=== PATIENT | female | born 1960 | race Two or more races ===

== ENCOUNTER 2016-07-29 15:40 | Inpatient (IN) | payer MEDICAID ==
[~2016-07-29] VITALS: Ht 152.4 cm; Wt 90.4 kg
[2016-07-29 16:15] LABS: Basophils # (auto) 0 uL; Basophils % (auto) 0.3 % (0.0-2.0); Eosinophils # (auto) 0.1 uL; Eosinophils % (auto) 1.2 % (0.0-7.0); Hematocrit 41.8 % (36.0-46.0); Lymphocytes # (auto) 3.2 uL; Lymphocytes % (auto) 34.5 % (10.0-50.0); Mean Corpuscular Hgb Conc. 33.6 g/dL (32.0-36.0); Mean Corpuscular Volume 86.3 fL (80.0-100.0); Mean Platelet Volume 8.4 fL (7.4-10.4); Monocytes # (auto) 0.4 uL; Monocytes % (auto) 4.8 % (0.0-12.0); Neutrophils # (auto) 5.5 uL; Neutrophils % (auto) 59.2 % (37.0-80.0); Platelet Count (auto) 318 10^3/uL (140-450); Red Cell Distribution Width 14.1 % (11.6-16.0); White Blood Cell 9.2 10^3/uL (4.4-10.8)
[2016-07-29 16:23] LABS: INR 0.95 (0.9-1.15); Partial Thromboplastin Time 27.3 sec (22.64-33.71); Prothrombin Time 10.3 sec (9.37-12.3)
[2016-07-29 16:27] LABS: Albumin 3.9 g/dL (3.4-5.0); Anion Gap 9 (5-15); Aspartate Aminotransferase 22 U/L (15-37); BUN/Creatinine Ratio 16.7; Blood Urea Nitrogen 16 mg/dL (7-18); Calcium 8.8 mg/dL (8.5-10.1); Carbon Dioxide 27 mmol/L (21-32); Chloride 106 mmol/L (98-107); GFR African American 78 mL/min; GFR Non-African American 64 mL/min; Glucose 89 mg/dL (74-106); Potassium 3.5 mmol/L (3.5-5.1); Sodium 142 mmol/L (136-145)
[2016-07-29 16:32] LABS: Alkaline Phosphatase 106 U/L (45-117); Bilirubin, Total 0.4 mg/dL (0.2-1.0); Total Protein 8.3 g/dL (6.4-8.2)
[2016-07-29] MEDS ORDERED: SODIUM CHLORIDE 0.9% 1,000 ML IV ONE (17:30)
[2016-07-29] MEDS ORDERED: MORPHINE SULFATE 4 MG/ML SYRG IV ONE (17:30)
[2016-07-29] MEDS ORDERED: ASPirin 81 mg TAB PO ONE ×2 (17:30→18:00)
[2016-07-29] MEDS ORDERED: ONDANSETRON HCL 4 MG/2 ML VIAL IV ONE (17:30)
[2016-07-29] MEDS ORDERED: NITROGLYCERIN 0.4 MG SL TAB SL PRN (18:30)
[2016-07-29] MEDS ORDERED: LORazepam 0.5 MG TAB PO PRN (18:30)
[2016-07-29] MEDS ORDERED: TEMAZEPAM 15 MG CAP PO PRN (18:30)
[2016-07-29] MEDS ORDERED: MORPHINE SULF INJ 2 MG/ML SYRINGE 1ML IV PRN ×2 (18:30)
[2016-07-29] MEDS ORDERED: PROCHLORPERAZINE EDISYLATE 5 MG/ML 2ML VIAL IV PRN (18:30)
[2016-07-29] MEDS ORDERED: LACTULOSE 20Gm/30ML SOLN PO PRN (18:30)
[2016-07-29] MEDS ORDERED: ENALAPRIL MALEATE 10 MG TAB PO ONE (18:45)
[2016-07-29] MEDS ORDERED: NITROGLYCERIN 0.2MG/HR TOPICAL PATCH TD ONE (18:45)
[2016-07-29] MEDS ORDERED: ENOXAPARIN SOD 40 MG/0.4 ML SYRINGE SC ONE (18:45)
[2016-07-29] MEDS: SODIUM CHLORIDE 0.9% 1,000 ML IV SCH (19:40)
[2016-07-29] MEDS: ATORVASTATIN 20 MG TAB PO SCH (21:55)
[2016-07-29] MEDS: METOPROLOL TARTRATE 25 MG TAB PO SCH (21:56)
[2016-07-29] MEDS: HYDROcodone-ACET 5/325MG TAB PO PRN (21:57)
[2016-07-29 22:30] VITALS: BP 111/61
[2016-07-30] VITALS (7 sets, daily range): BP systolic 86–119; BP diastolic 53–74
[2016-07-30] MEDS: SODIUM CHLORIDE 0.9% 1,000 ML IV SCH ×2 (05:21→22:15)
[2016-07-30 06:15] LABS: Cholesterol 185 mg/dL (< 200); HDL Cholesterol 37 mg/dL (40-59); LDL Cholesterol 131 mg/dL (< 100); Triglycerides 202 mg/dL (< 150)
[2016-07-30] MEDS ORDERED: NITROGLYCERIN 0.2MG/HR TOPICAL PATCH TD SCH (10:00)
[2016-07-30] MEDS: NITROGLYCERIN 0.2MG/HR TOPICAL PATCH TD SCH (10:00)
[2016-07-30] MEDS: METOPROLOL TARTRATE 25 MG TAB PO SCH ×2 (10:04→22:00)
[2016-07-30] MEDS: ACETAMINOPHEN 500 MG TAB PO PRN (10:04)
[2016-07-30] MEDS: ENALAPRIL MALEATE 10 MG TAB PO SCH (10:05)
[2016-07-30] MEDS: ENOXAPARIN SOD 40 MG/0.4 ML SYRINGE SC SCH (10:05)
[2016-07-30] MEDS: ASPirin 81 mg TAB PO SCH (10:05)
[2016-07-30] MEDS: ATORVASTATIN 20 MG TAB PO SCH (22:15)
[2016-07-30] MEDS: HYDROcodone-ACET 5/325MG TAB PO PRN (22:33)
[2016-07-31 05:00] VITALS: BP 146/84
[2016-07-31 06:18] LABS: Basophils # (auto) 0 uL; Basophils % (auto) 0.3 % (0.0-2.0); Eosinophils # (auto) 0.2 uL; Eosinophils % (auto) 2.9 % (0.0-7.0); Hematocrit 36.9 % (36.0-46.0); Hemoglobin 12.5 g/dL (12.2-16.2); Lymphocytes # (auto) 3.4 uL; Lymphocytes % (auto) 47.8 % (10.0-50.0); Mean Corpuscular Hemoglobin 29.5 pg (28.0-32.0); Mean Corpuscular Hgb Conc. 33.9 g/dL (32.0-36.0); Mean Platelet Volume 8.8 fL (7.4-10.4); Monocytes # (auto) 0.4 uL; Neutrophils # (auto) 3.1 uL; Platelet Count (auto) 253 10^3/uL (140-450); Red Cell Distribution Width 14.1 % (11.6-16.0)
[2016-07-31 06:56] LABS: BUN/Creatinine Ratio 19.1; Calcium 8.2 mg/dL (8.5-10.1)
[2016-07-31 08:00] VITALS: BP 141/72
[2016-07-31 09:17] VITALS: BP 141/72
[2016-07-31] MEDS: ASPirin 81 mg TAB PO SCH (09:21)
[2016-07-31] MEDS: ENALAPRIL MALEATE 10 MG TAB PO SCH (09:22)
[2016-07-31] MEDS: ACETAMINOPHEN 500 MG TAB PO PRN (09:22)
[2016-07-31] MEDS: METOPROLOL TARTRATE 25 MG TAB PO SCH ×2 (09:22→22:00)
[2016-07-31] MEDS: NITROGLYCERIN 0.2MG/HR TOPICAL PATCH TD SCH (09:23)
[2016-07-31] MEDS: SODIUM CHLORIDE 0.9% 1,000 ML IV SCH ×2 (09:23→23:37)
[2016-07-31] MEDS: ENOXAPARIN SOD 40 MG/0.4 ML SYRINGE SC SCH (09:23)
[2016-07-31 12:51] VITALS: BP 156/80
[2016-07-31] MEDS: HYDROcodone-ACET 5/325MG TAB PO PRN (15:08)
[2016-07-31 17:00] VITALS: BP 120/68
[2016-07-31] MEDS: ATORVASTATIN 20 MG TAB PO SCH (22:01)
[2016-07-31 22:04] VITALS: BP 128/93
[2016-08-01 04:42] VITALS: BP 130/81
[2016-08-01 06:24] LABS: Basophils # (auto) 0 uL; Basophils % (auto) 0.4 % (0.0-2.0); Eosinophils # (auto) 0.2 uL; Eosinophils % (auto) 2.8 % (0.0-7.0); Hematocrit 39.4 % (36.0-46.0); Hemoglobin 13.2 g/dL (12.2-16.2); Lymphocytes # (auto) 2.9 uL; Mean Corpuscular Hemoglobin 29.1 pg (28.0-32.0); Mean Corpuscular Hgb Conc. 33.5 g/dL (32.0-36.0); Mean Corpuscular Volume 86.6 fL (80.0-100.0); Mean Platelet Volume 8.9 fL (7.4-10.4); Monocytes # (auto) 0.3 uL; Monocytes % (auto) 4.3 % (0.0-12.0); Neutrophils # (auto) 4.5 uL; Neutrophils % (auto) 56.5 % (37.0-80.0); Platelet Count (auto) 275 10^3/uL (140-450); Red Cell Distribution Width 13.5 % (11.6-16.0)
[2016-08-01 06:40] LABS: BUN/Creatinine Ratio 19.6; Calcium 8.7 mg/dL (8.5-10.1); Potassium 3.9 mmol/L (3.5-5.1)
[2016-08-01 08:00] VITALS: BP 131/79
[2016-08-01 09:00] VITALS: BP 131/79
[2016-08-01] MEDS: ENALAPRIL MALEATE 10 MG TAB PO SCH (09:40)
[2016-08-01] MEDS: METOPROLOL TARTRATE 25 MG TAB PO SCH ×2 (09:40→22:17)
[2016-08-01] MEDS: ASPirin 81 mg TAB PO SCH (09:41)
[2016-08-01] MEDS: NITROGLYCERIN 0.2MG/HR TOPICAL PATCH TD SCH (09:41)
[2016-08-01] MEDS: ENOXAPARIN SOD 40 MG/0.4 ML SYRINGE SC SCH (09:42)
[2016-08-01] MEDS: ACETAMINOPHEN 500 MG TAB PO PRN ×2 (11:44→18:01)
[2016-08-01 12:41] VITALS: BP 141/81
[2016-08-01] MEDS: SODIUM CHLORIDE 0.9% 1,000 ML IV SCH (14:05)
[2016-08-01 17:01] VITALS: BP 110/53
[2016-08-01 22:00] VITALS: BP 141/70
[2016-08-01] MEDS: ATORVASTATIN 20 MG TAB PO SCH (22:16)
[2016-08-02] MEDS: SODIUM CHLORIDE 0.9% 1,000 ML IV SCH ×2 (02:45→15:37)
[2016-08-02 05:00] VITALS: BP 126/57
[2016-08-02 08:00] VITALS: BP 156/73
[2016-08-02 09:00] VITALS: BP 156/73
[2016-08-02] MEDS ORDERED: NITROGLYCERIN 0.4 MG SL TAB SL ONE (10:04)
[2016-08-02] MEDS ORDERED: METOPROLOL TARTRATE 1MG/1ML-5ML VIAL IV ONE (10:05)
[2016-08-02] MEDS ORDERED: IOHEXOL 350 MG/ML 100ML IJ ONE (10:10)
[2016-08-02] MEDS: ASPirin 81 mg TAB PO SCH (10:50)
[2016-08-02] MEDS: ENOXAPARIN SOD 40 MG/0.4 ML SYRINGE SC SCH (10:50)
[2016-08-02] MEDS: NITROGLYCERIN 0.2MG/HR TOPICAL PATCH TD SCH (10:50)
[2016-08-02] MEDS: ENALAPRIL MALEATE 10 MG TAB PO SCH (10:51)
[2016-08-02] MEDS: METOPROLOL TARTRATE 25 MG TAB PO SCH (10:51)
[2016-08-02] MEDS: ACETAMINOPHEN 500 MG TAB PO PRN (11:01)
[2016-08-02 13:00] VITALS: BP 145/77
[2016-08-02 16:25] VITALS: BP 145/77
== END 2016-08-02 16:45 | disposition home or self-care (01) | DRG 203 ==
LOC: ER 15:42 → TELE 15:43 → TELE-WESTW 22:20
PROVIDERS: ADMIT Internal Medicine; ATTEND Nurse Practitioner Acute Care
DX: R07.89 Other chest pain (principal); E66.01 Morbid (severe) obesity due to excess calories; I15.9 Secondary hypertension, unspecified; I16.0 Hypertensive urgency; M94.0 Chondrocostal junction syndrome [Tietze]; E11.9 Type 2 diabetes mellitus without complications; E78.00 Pure hypercholesterolemia, unspecified; E78.5 Hyperlipidemia, unspecified; I10 Essential (primary) hypertension; R51 Headache; Z71.89 Other specified counseling; Z82.49 Family history of ischemic heart disease and other diseases of the circulatory system; Z68.38 Body mass index [BMI] 38.0-38.9, adult
CPT/HCPCS: 36415; 70450; 71020; 75574; 80048; 80053; 80061; 80307; 82550; 84484; 85025; 85379; 85610; 85652; 85730; 86141; 93005; 93306; 96361; 96372; 96374; 96375; J2405